=== PATIENT | female | born 1995 | race Caucasian/White ===

== ENCOUNTER 2024-01-18 18:09 | Emergency (ER) | payer SELFPAY ==
[~2024-01-18] VITALS: Ht 162.6 cm; Wt 90.7 kg
[2024-01-18 18:23] VITALS: BP_SYST 131; PULSE 85; RESP 18; TEMP 98.3; O2SAT 98
[2024-01-18 19:07] LABS: BASOPHILS # (AUTO) 0.1 K/uL (0.0-0.2); BASOPHILS % (AUTO) 0.8 % (0.0-2.0); EOSINOPHILS # (AUTO) 0.4 K/uL (0.0-0.4); EOSINOPHILS % (AUTO) 3.8 % (0.0-4.0); HEMOGLOBIN 11.5 g/dL (12.0-16.0); LYMPHOCYTES # (AUTO) 2.3 K/uL (1.0-5.5); LYMPHOCYTES % (AUTO) 23.1 % (20.5-51.5); MEAN CORPUSCULAR HEMOGLOBIN 25 pg (27-31); MEAN CORPUSCULAR HGB CONC 32 % (32-36); MEAN CORPUSCULAR VOLUME 77 fL (79.0-98.0); MONOCYTES # (AUTO) 0.7 K/uL (0.0-1.0); MONOCYTES % (AUTO) 6.8 % (1.7-9.3); NEUTROPHILS # (AUTO) 6.5 K/uL (1.8-7.7); NEUTROPHILS % (AUTO) 65.5 % (40.0-70.0); PLATELET COUNT (AUTO) 411 K/uL (130-430); RED CELL DISTRIBUTION WIDTH 15.5 % (9.0-15.0)
[2024-01-18 19:15] LABS: SERUM HCG (QUALITATIVE) NEGATIVE (NEGATIVE)
[2024-01-18] MEDS ORDERED: MEDR10TA72 PO (20:47)
[2024-01-18 20:50] VITALS: BP_SYST 131; PULSE 85; RESP 18; TEMP 98.3; O2SAT 98
== END 2024-01-18 20:50 | disposition home or self-care (01) ==
LOC: SED 18:09
DX: N93.8 Other specified abnormal uterine and vaginal bleeding (principal)
CPT/HCPCS: 36415; 84703; 85025; 99283